=== PATIENT | female | born 1940 | race Caucasian/White ===

== ENCOUNTER 2017-07-09 00:49 | Emergency (ER) | payer MEDICARE, OTHER ==
[~2017-07-09] VITALS: Ht 157.5 cm; Wt 63.6 kg
[2017-07-09 00:57] VITALS: TEMP 96.5
[2017-07-09] MEDS ORDERED: AMOXICILLIN 8751 TAB PO (01:05)
[2017-07-09] MEDS ORDERED: TOPROL XL 25MG25 MG PO (01:06)
[2017-07-09] MEDS ORDERED: COUMADIN 5MG5 MG/TAB PO (01:06)
[2017-07-09 01:26] LABS: BASO # 0.1 (0.0-0.2); EOS # 0.2 (0.0-0.7); EOS % 1.8 % (0-4.0); GRAN % 49.8 % (42.2-75.2); HEMATOCRIT 38.4 % (37.0-47.0); HEMOGLOBIN 13.1 g/dl (12.5-16.0); LYMPH # 3.2 (1.2-3.4); LYMPH % 39.8 % (20.0-51.0); MEAN CELL VOLUME 85 fl (80.0-100.0); MEAN CORPUSCULAR HEMOGLOBIN 29 pg (27.0-31.0); MEAN CORPUSCULAR HGB CONC 34 g/dl (33.0-37.0); MEAN PLATELET VOLUME 10.4 fl (7.4-10.4); MONO # 0.6 (0.1-0.6); MONO % 7.5 % (1.7-9.3); PLATELET COUNT 219 K/mm3 (130-400); RED BLOOD COUNT 4.54 M/mm3 (4.10-5.30); REDCELL DISTRIBUTION WIDTH-CV 12.9 % (11.5-14.5)
[2017-07-09 01:35] LABS: PROTHROMBIN TIME 10.8 SECONDS (9.7-12.8)
[2017-07-09 01:38] LABS: PARTIAL THROMBOPLASTIN TIME 35.7 SECONDS (26.0-37.0)
[2017-07-09 01:39] LABS: ALANINE AMINOTRANSFERASE 34 U/L (9-52); ALBUMIN 3.8 gm/dL (3.5-5.0); ALKALINE PHOSPHATASE 72 U/L (50-136); ANION GAP 15 mmol/L (7-16); AST,SGOT 25 U/L (15-37); BILIRUBIN,TOTAL 0.5 mg/dL (0.0-1.0); BLOOD UREA NITROGEN 16 mg/dL (7-17); CALCIUM 9.7 mg/dL (8.4-10.2); CARBON DIOXIDE 21 mmol/L (22-30); CHLORIDE 105 mmol/L (98-107); CREATININE, serum 0.69 mg/dL (0.52-1.25); GLUCOSE 130 mg/dL (74-106); MAGNESIUM 1.9 mg/dL (1.6-2.3); POTASSIUM 3.6 mmol/L (3.4-5.0); SODIUM 142 mmol/L (137-145); TOTAL PROTEIN 7.1 gm/dL (6.4-8.2)
[2017-07-09 02:02] LABS: TROPONIN-I < 0.012 ng/mL (0.000-0.034)
[2017-07-09 02:45] VITALS: BP 131/72; PULSE 48
== END 2017-07-09 02:48 | disposition home or self-care (01) ==
LOC: COL.ER 00:49
PROVIDERS: Emergency Medicine
DX: I48.0 Paroxysmal atrial fibrillation (principal); E11.9 Type 2 diabetes mellitus without complications; Z79.01 Long term (current) use of anticoagulants